=== PATIENT | male | born 1995 | race African-American/Black ===

== ENCOUNTER 2020-08-06 23:55 | Emergency (ER) | payer OTHER ==
[~2020-08-06] VITALS: Ht 170.2 cm; Wt 59.0 kg
[2020-08-07 05:10] VITALS: BP 112/67
== END 2020-08-07 07:20 | disposition home or self-care (01) ==
LOC: ER 23:55 → EDBD 23:55 → ER 08-07 07:20
DX: F16.10 Hallucinogen abuse, uncomplicated (principal); M79.604 Pain in right leg; R45.6 Violent behavior; R41.82 Altered mental status, unspecified; V47.5XXA Car driver injured in collision with fixed or stationary object in traffic accident, initial encounter; Y93.I9 Activity, other involving external motion; Y92.488 Other paved roadways as the place of occurrence of the external cause; Y99.8 Other external cause status